=== PATIENT | female | born 1975 | race Caucasian/White ===

== ENCOUNTER 2018-03-18 05:33 | Emergency (ER) | payer SELFPAY ==
--- NOTE | 2018-03-18 05:51 | ED ---
Palpitations / Dysrhythmia - HPI Summary HPI Summary: This patient is a 42 year old F BIBA to [facility] with a chief complaint of heart palpations and chest pain since 05:00 this morning. The patient reports that she woke up, took her dog outside, and noticed her heart was beating very rapidly. She noted that her FitBit reported her HR to be approximately 160-180 bpm. The patient rates the pain 5/10 in severity. Symptoms aggravated by nothing. Symptoms alleviated by nothing. Patient reports waking up in a cold sweat, which is unusual for her. Patient has hx of SVT, hypertension, mitral valve prolapse. Patient reports that it has been almost 20 years since she last had SVT. Patient reports that she took her medications prior to arrival. - History of Current Complaint Chief Complaint: EDDysrhythmPalp Time Seen by Provider: 03/18/18 05:40 Hx Obtained From: Patient, EMS Onset/Duration: Sudden Onset, Lasting Hours, Still Present Timing: Constant Severity Initially: Mild Severity Currently: Mild Character: Fast Aggravating: Nothing Alleviating: Nothing Associated Signs & Symptoms: Chest Pain - Allergy/Home Medications Home Medications: Home Medications Unobtainable 03/18/18 [History Confirmed 03/18/18] PMH/Surg Hx/FS Hx/Imm Hx Cardiovascular History: Reports: Hx Hypertension, Hx Supraventricular Ventricular Tachycardia, Other Cardiovascular Problems/Disorders - mitral valve prolapse Opthamlomology History: Denies: Hx Legally Blind EENT History: Denies: Hx Deafness - Family History Known Family History: Positive: None - patient denies relevant FHx - Social History Occupation: Works From/At Home Lives: With Family Review of Systems Negative: Fever Negative: Epistaxis Positive: Palpitations, Chest Pain Negative: Cough Negative: Vomiting All Other Systems Reviewed And Are Negative: Yes Physical Exam - Summary Physical Exam Summary: Appearance: Well-appearing, Well-nourished, lying in bed comfortably Skin: Warm, dry, no obvious rash Eyes: sclera anicteric, no conjunctival pallor ENT: mucous membranes moist, pharynx appears normal Neck: Supple, nontender Respiratory: Clear to auscultation, no signs of respiratory distress Cardiovascular: Normal S1, S2. No murmurs. Normal distal pulses in tibial and radial bilaterally. Abdomen: Soft, nontender, normal active bowel sounds present Musculoskeletal: Normal, Strength/ROM Intact Neurological: A&Ox3, awake and alert, mentation is normal, speech is fluent and appropriate Psychiatric: affect is normal, does not appear anxious or depressed Triage Information Reviewed: Yes Vital Signs Reviewed: Yes Diagnostics - Laboratory Lab Statement: Any lab studies that have been ordered have been reviewed, and results considered in the medical decision making process. - EKG 05:51 Cardiac Rate: NL - at 87 bpm EKG Rhythm: Sinus Rhythm ST Segment: Normal Ectopy: None EKG Interpretation: NSR at 87 bpm with normal intervals and no ischemic changes Course/Dx - Course Course Of Treatment: This is a 42-year-old woman who developed the abrupt onset of palpitations with rapid heart rate confirmed by her fit bit. She has a remote history of supraventricular tachycardia, but has not had a bout of this in about 20 years. Nonetheless, the heart rate and abrupt onset as well as the rapid resolution are certainly consistent with SVT. At present, she is asymptomatic and does not require any further diagnostic workup area and her EKG appears normal. She will be observed for a short period of time and should be stable for discharge this morning. - Diagnoses Provider Diagnoses: Supraventricular tachycardia Discharge - Sign-Out/Discharge Documenting (check all that apply): Patient Departure - Discharge Plan Condition: Good Disposition: HOME Patient Education Materials: Supraventricular Tachycardia (ED) Referrals: Aidan Church MD [Medical Doctor] - - Billing Disposition and Condition Condition: GOOD Disposition: Home - Attestation Statements Document Initiated by Scribe: Yes Documenting Scribe: Cookie Clark Provider For Whom Oli is Documenting (Include Credential): Villa Donahue MD Scribe Attestation: Cookie Sanders, scribed for Villa Donahue MD on 03/19/18 at 0207. Scribe Documentation Reviewed: Yes Provider Attestation: The documentation as recorded by the Cookie kaplan accurately reflects the service I personally performed and the decisions made by me, Villa Donahue MD
[2018-03-18 06:55] VITALS: BP 106/64
== END 2018-03-18 07:25 | disposition home or self-care (01) ==
LOC: ED 05:33
CPT/HCPCS: 93005

== ENCOUNTER 2019-02-14 17:23 | Emergency (ER) | payer SELFPAY ==
--- NOTE | 2019-02-14 19:25 | ED ---
Head Injury - HPI Summary HPI Summary: The patient is a 43 y/o F presenting to [facility] with a chief complaint of gradual onset neck tightness and pain following a head injury nine days ago. She reports that on 02/05/2019, she was at work moving a heavy floral cart, when the cart started tipping over, and she braced the fall with her neck, which didn t twist. Immediately following this, she had low back pain and mild face numbness, which resolved over the next few hours. She denies any LOC at this time. Since then, she has been experiencing the low back intermittently, but it has developed severe neck pain that moved into the left scapula. She went to the chiropractor yesterday for the pain, where the physician cracked her low back midline and used a deep tissue massage gun on the neck without cracking it. Today, she was still experiencing some neck and back, but she was walking out of her house when her LLE suddenly became numb but resolved. There was no numbness in the LUE. She was driving this when she had fluttering of the right eye, which she notes she hasn't had in 25 years. 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 Currently, the neck pain is rated 2/10 in severity and is described as a sensation of someone pulling taut at the scruff of the neck. 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 PMHx: HTN, tachycardia, mitral valve prolapse. On lasix. Heavy every day smoker, weekly EtOH, no substance use. - History Of Current Complaint Chief Complaint: EDHeadInjury Stated Complaint: HEADACHE AND NECK PAIN PER PT Time Seen by Provider: 02/14/19 19:11 Hx Obtained From: Patient Mechanism Of Injury: Other - neck braced fall of heavy cart 9 days ago Onset/Duration: Started Days Ago - nine, Still Present, Worse Since - today Onset of Pain: Post Accident - 9 days ago Severity Currently: Mild Severity Initially: Moderate Pain Intensity: 2 Pain Scale Used: 0-10 Numeric Location of Head Injury: Other: - neck Aggravating Factor(s): Other: - nothing Alleviating Factor(s): Other: - Aleve to some relief Associated Signs And Symptoms: Neck Pain - radiating into left shoulder, Numbness - in LLE (not LUE) that has resolved, Other: - POSITIVE: low back pain , right eye fluttering (resolved); NEGATIVE: LOC with head injury - Allergies/Home Medications Allergies/Adverse Reactions: Allergies Allergy/AdvReac Type Severity Reaction Status Date / Time No Known Allergies Allergy Verified 02/14/19 17:31 Home Medications: Home Medications NK [No Home Medications Reported] 02/14/19 [History Confirmed 02/14/19] PMH/Surg Hx/FS Hx/Imm Hx Endocrine/Hematology History: Denies: Hx Diabetes Cardiovascular History: Reports: Hx Hypertension, Other Cardiovascular Problems/ Disorders - mitral valve prolapse, tachycardia Sensory History: Denies: Hx Legally Blind, Hx Deafness Opthamlomology History: Denies: Hx Legally Blind Neurological History: Reports: Other Neuro Impairments/Disorders - brainstem injury at age 17 - Surgical History Surgical History: None Surgery Procedure, Year, and Place: none Infectious Disease History: No Infectious Disease History: Denies: Traveled Outside the [place] in Last 30 Days - Family History Known Family History: Negative: Cardiac Disease, Hypertension, Diabetes - Social History Alcohol Use: Weekly Substance Use Type: Reports: None Hx Tobacco Use: Yes Smoking Status (MU): Heavy Every Day Tobacco Smoker Review of Systems Positive: Other - right eye twitching (resolved) Positive: Other - neck tightness and pain radiating into left shoulder, low back pain Neurological: Other - head injury without LOC Positive: Numbness - in LLE (resolved), not in LUE All Other Systems Reviewed And Are Negative: Yes Physical Exam - Summary Physical Exam Summary: Constitutional: Well-developed, Well-nourished, Alert. (-) Distressed Skin: Warm, Dry HENT: Normocephalic; Atraumatic Eyes: Conjunctiva normal Neck: A lot of cervical muscle spasm and going into the left shoulder, Musculoskeletal ROM normal neck. (-) JVD, (-) Stridor, (-) Tracheal deviation Cardio: Rhythm regular, rate normal, Heart sounds normal; Intact distal pulses; The pedal pulses are 2+ and symmetric. Radial pulses are 2+ and symmetric. Pulmonary/Chest wall: Effort normal. (-) Respiratory distress, (-) Wheezes, (-) Rales Abd: Soft, (-) tenderness, (-) Distension, (-) Guarding, (-) Rebound Musculoskeletal: Muscle spasm and tenseness in the left trapezius, Nothing in the bones of the spine, (-) Edema Neuro: Alert, Oriented x3, GCS: 15 Psych: Mood and affect Normal Triage Information Reviewed: Yes Vital Signs On Initial Exam: Initial Vitals Temp Pulse Resp BP Pulse Ox 99.4 F 78 18 161/94 98 02/14/19 17:25 02/14/19 17:25 02/14/19 17:25 02/14/19 17:25 02/14/19 17:25 Vital Signs Reviewed: Yes - [place] Coma Scale Best Eye Response: 4 - Spontaneous Best Motor Response: 6 - Obeys Commands Best Verbal Response: 5 - Oriented Coma Scale Total: 15 Diagnostics - Vital Signs Vital Signs Temp Pulse Resp BP Pulse Ox 02/14/19 17:25 99.4 F 78 18 161/94 98 - Laboratory Lab Statement: Any lab studies that have been ordered have been reviewed, and results considered in the medical decision making process. - CT Brain CT (noncontrast) CT Interpretation Completed By: Radiologist Summary of CT Findings: Impression: No acute intracranial pathology. ED physician has reviewed this radiology report. Re-Evaluation - Re-Evaluation First Eval Re-Evaluation Time: 20:15 Comment: We discussed discharge plan. Head Injury Course/Dx Course Of Treatment: Patient is a 43 y/o F with cc of worsening neck pain radiating into her left scapula and low back pain s/p using her neck to brace a falling cart nine days ago with new onset numbness in the LLE and right eye fluttering today that has since resolved. Hx brainstem injury at age 17. Upon physical exam, the patient exhibits muscle spasm and tenseness in the left trapezius with a lot of cervical muscle spasm and going into the shoulder, without anything in the bones of the spine. GCS: 15. Brain CT noncontrast is negative. She is electing to follow up with a PCP with referral for [facility] for Brain CT with contrast or MRI to rule out vessel changes. She is diagnosed with cervical muscle spasms and concussion. She understands and agrees with this plan. - Diagnoses Provider Diagnoses: Cervical paraspinal muscle spasm, Concussion Discharge - Sign-Out/Discharge Documenting (check all that apply): Patient Departure - Patient will be discharged home. Patient Received Moderate/Deep Sedation with Procedure: No - Discharge Plan Condition: Good Disposition: HOME Patient Education Materials: Concussion (ED), Spasmodic Torticollis (ED) Referrals: [facility] [Outside] - 1 Day - Billing Disposition and Condition Condition: GOOD Disposition: Home - Attestation Statements Document Initiated by Scribe: Yes Documenting Scribe: Sandy Fine Provider For Whom Scribe is Documenting (Include Credential): Dr. Alcon Hollis MD Scribe Attestation: Sandy Sanders scribed for Dr. Alcon Hollis MD on 02/15/19 at 0639. Scribe Documentation Reviewed: Yes Provider Attestation: The documentation as recorded by the Sandy kaplan accurately reflects the service I personally performed and the decisions made by me, Dr. Alcon Hollis MD Status of Scribe Document: Viewed
[2019-02-14 20:48] VITALS: BP 125/82
== END 2019-02-14 20:46 | disposition home or self-care (01) ==
LOC: ED 17:23
DX: S06.0X9A Concussion with loss of consciousness of unspecified duration, initial encounter (principal); M62.838 Other muscle spasm; X58.XXXA Exposure to other specified factors, initial encounter; Y92.9 Unspecified place or not applicable; I10 Essential (primary) hypertension; I34.1 Nonrheumatic mitral (valve) prolapse; F17.210 Nicotine dependence, cigarettes, uncomplicated; Z79.899 Other long term (current) drug therapy
CPT/HCPCS: 70450; 99282

== ENCOUNTER 2019-05-19 11:25 | Emergency (ER) | payer SELFPAY ==
[2019-05-19 12:00] VITALS: BP 128/84
--- NOTE | 2019-05-19 12:45 | UC ---
Lower Extremity/Ankle HPI - History of Current Complaint Chief Complaint: UCLowerExtremity Stated Complaint: R FOOT INJURY Time Seen by Provider: 05/19/19 12:32 Hx Last Menstrual Period: today Pain Intensity: 8 - Allergies/Home Medications Allergies/Adverse Reactions: Allergies Allergy/AdvReac Type Severity Reaction Status Date / Time No Known Allergies Allergy Verified 05/19/19 12:00 PMH/Surg Hx/FS Hx/Imm Hx - Surgical History Surgical History: None Surgery Procedure, Year, and Place: none - Family History Known Family History: Positive: None - patient denies relevant FHx Negative: Cardiac Disease, Hypertension, Diabetes - Social History Alcohol Use: Weekly Substance Use Type: None Smoking Status (MU): Heavy Every Day Tobacco Smoker Household Exposure Type: Cigarettes Review of Systems All Other Systems Reviewed And Are Negative: Yes Musculoskeletal: Positive: Arthralgia, Decreased ROM, Edema, Myalgia Is Patient Immunocompromised?: No Physical Exam Triage Information Reviewed: Yes Appearance: Well-Appearing, Well-Nourished, Pain Distress Vital Signs: Initial Vital Signs Temp 98.1 F 05/19/19 11:55 Pulse 66 05/19/19 11:55 Resp 17 05/19/19 11:55 BP 128/84 05/19/19 11:55 Pulse Ox 98 05/19/19 11:55 Vital Signs Reviewed: Yes Eye Exam: Normal ENT Exam: Normal Dental Exam: Normal Neck exam: Normal Respiratory Exam: Normal Cardiovascular Exam: Normal Abdominal Exam: Normal Bowel Sounds: Positive: Present Musculoskeletal: Positive: Strength Limited @, ROM Limited @, Edema @ Neurological Exam: Normal Psychological Exam: Normal Skin Exam: Normal Lower Extremity Course/Dx - Course Course Of Treatment: hx obtained, exam performed, xray obtained, possible fracture noted. post op shoe provided, patient has crutches, advised follow up with orthopedics - Differential Dx/Diagnosis Differential Diagnosis/HQI/PQRI: Contusion, Fracture (Closed) Provider Diagnosis: Fracture of right great toe Discharge ED - Sign-Out/Discharge Documenting (check all that apply): Patient Departure All imaging exams completed and their final reports reviewed: No Studies - Discharge Plan Condition: Stable Disposition: HOME Patient Education Materials: Toe Fracture (ED) Referrals: No Primary Care Phys,NOPCP [Primary Care Provider] - Gauri Brunner MD [Medical Doctor] - Additional Instructions: 1. use the post op shoe and crutches. 2. Follow up with orthopedics. 3. Ibuprofen and ice for pain - Billing Disposition and Condition Condition: STABLE Disposition: Home
== END 2019-05-19 13:14 | disposition home or self-care (01) ==
LOC: UCEAST 11:25
DX: S92.911A Unspecified fracture of right toe(s), initial encounter for closed fracture (principal); F17.210 Nicotine dependence, cigarettes, uncomplicated; X58.XXXA Exposure to other specified factors, initial encounter; Y92.9 Unspecified place or not applicable
CPT/HCPCS: 99212; G0463